=== PATIENT | female | born 1975 | race Caucasian/White ===

== ENCOUNTER → 2022-07-27 13:23 | Outpatient (BNVA) | payer OTHER, SELFPAY | PROVIDERS: PCP Nurse Practitioner; Visit Provider Psychiatry & Neurology Neurology | DX: G47.10 Hypersomnia, unspecified (principal); R06.83 Snoring; R41.89 Other symptoms and signs involving cognitive functions and awareness | CPT/HCPCS: 99202 ==

== ENCOUNTER → 2022-08-15 10:59 | Outpatient (REF) | payer OTHER, SELFPAY | LOC: HO.SL 10:59 | PROVIDERS: Visit Provider Psychiatry & Neurology Neurology | DX: R41.89 Other symptoms and signs involving cognitive functions and awareness (principal); R06.83 Snoring; G47.10 Hypersomnia, unspecified | CPT/HCPCS: 95806 ==

== ENCOUNTER → 2022-10-16 20:30 | Outpatient (REF) | payer OTHER, SELFPAY | LOC: HO.SL 20:30 | PROVIDERS: Visit Provider Nurse Practitioner Family | DX: G47.10 Hypersomnia, unspecified (principal); R06.83 Snoring; R41.89 Other symptoms and signs involving cognitive functions and awareness | CPT/HCPCS: 95810 ==

== ENCOUNTER → 2022-11-16 10:51 | Outpatient (BNVA) | payer OTHER, SELFPAY | PROVIDERS: PCP Nurse Practitioner; Visit Provider Psychiatry & Neurology Neurology | DX: Z09 Encounter for follow-up examination after completed treatment for conditions other than malignant neoplasm (principal); R41.89 Other symptoms and signs involving cognitive functions and awareness; G47.00 Insomnia, unspecified; R47.9 Unspecified speech disturbances | CPT/HCPCS: 99212 ==